=== PATIENT | male | born 1965 | race Caucasian/White ===

== ENCOUNTER 2022-02-06 14:19 | Emergency (ER) | payer SELFPAY ==
[~2022-02-06] VITALS: Ht 177.8 cm; Wt 121.1 kg
[~2022-02-06 14:19] MED LIST: AMLO10TA PO; METO-352 PO; MULT-974 PO; OMEG1CAP51 PO
--- NOTE | 2022-02-06 14:58 | ED General ---
General Chief Complaint: Rect Problems Stated Complaint: BLEEDING | DRUG REACTION Nursing Triage Note: PT AMB TO TRIAGE W C/O BRIGHT RED BLOODY STOOLS SX THIS AM. PT REPORTS HE STARTED XARELTO ON WEDNESDAY, CALLED [facility] AND WAS ADVISED TO GO TO ED FOR FURTHER EVALUATION AND TX. PT A&OX4, DENIES ANY NEW ONSET OF PAIN. Source of Information: Patient Exam Limitations: No Limitations History of Present Illness Date Seen by Provider: Feb 06, 2022 Time Seen by Provider: 14:35 Initial Comments 56-year-old male presents the emergency department today for bright red blood p er rectum. He states he had a small amount of bright red blood per rectum 1 time today. He was started on Xarelto 2 days ago for a DVT identified in his right upper arm secondary to recent trauma. He states he presented to the [facility], urgent care today and told them he had bleeding from his rectum while on Xarelto and was told to come to the emergency department. He denies any dizziness, lightheadedness. No chest pain or shortness of breath. No black or dark tarry stools. No rectal pain. Having normal bowel movements that are solid. Allergies and Home Medications Allergies Coded Allergies: Penicillins (Unverified Allergy, Severe, HIVES, 07/11/14) methylprednisolone (Unverified Allergy, Severe, "MAKES ME FEEL GOOFY", 07/11/14) Uncoded Allergies: 2 MEDS AFTER HAVING A HEART CATH (Allergy, Unknown, 07/11/14) Patient Home Medication List Home Medication List Reviewed: Yes Amlodipine Besylate (Amlodipine Besylate) 10 Mg Tablet, 10 MG PO DAILY Prescribed by: KALPANA SLADE on 07/11/141823 Docosahexanoic Acid/Epa (Fish Oil 1,000 Mg Softgel) 1 Cap Capsule, 1 CAP PO DAILY, (Reported) Entered as Reported by: BRAYAN BARRERA on 07/11/141714 Metoprolol Succinate (Toprol Xl) 50 Mg Tab, 50 MG PO BID, (Reported) Entered as Reported by: BRAYAN BARRERA on 07/11/141714 Multivitamin (Multi Vitamin Daily) 1 Each Tablet, 1 EACH PO DAILY, (Reported) Entered as Reported by: BRAYAN BARRERA on 07/11/141714 Review of Systems Review of Systems Constitutional: no symptoms reported EENTM: no symptoms reported Respiratory: no symptoms reported Cardiovascular: no symptoms reported Gastrointestinal: other (Bright red blood per rectum) Genitourinary: no symptoms reported Musculoskeletal: no symptoms reported Skin: no symptoms reported Psychiatric/Neurological: No Symptoms Reported Hematologic/Lymphatic: No Symptoms Reported Immunological/Allergic: no symptoms reported Past Nrrswew-Rkwrod-Pyrgdx Hx Patient Social History Tobacco Use?: No Use of E-Cig and/or Vaping dev: No Substance use?: No Alcohol Use?: No Immunizations Up To Date Tetanus Booster (TDap): Unknown Influenza Vaccine Up-to-Date: No; Not Current First/Initial COVID19 Vaccinat: NONE Second COVID19 Vaccination [place]: NONE Third COVID19 Vaccination Date: NONE 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 oz. [id number]; 38.00 BMI Method:Stated General Appearance: No Apparent Distress, WD/WN HEENT: Normal ENT Inspection, Pharynx Normal Neck: Normal Inspection, Non Tender, Supple Respiratory: Chest Non Tender, Lungs Clear, Normal Breath Sounds, No Accessory Muscle Use, No Respiratory Distress Cardiovascular: Regular Rate, Rhythm, No Edema, No Gallop, No JVD, No Murmur, Normal Peripheral Pulses Gastrointestinal: Normal Bowel Sounds, No Organomegaly, No Pulsatile Mass, Non Tender, Soft Extremity: Normal Capillary Refill, Normal Range of Motion, No Calf Tenderness, No Pedal Edema, Other (Ecchymosis to the right upper arm. There is mild swelling in this area as well. Good distal pulses. Neurovascular motor and sensory intact.) Neurologic/Psychiatric: Alert, Oriented x3, Normal Mood/Affect Skin: Normal Color, Warm/Dry Lymphatic: No Adenopathy Progress/Results/Core Measures Suspected Sepsis SIRS Temperature: Pulse: 70 Respiratory Rate: 20 Laboratory Tests 02/06/22 15:40: White Blood Count 5.9 Blood Pressure 147 /84 Mean: 105 Laboratory Tests 02/06/22 15:40: Platelet Count 231 Results/Orders Lab Results Laboratory Tests Test 02/06/22 15:40 Range/Units White Blood Count 5.9 4.3-11.0 10^3/uL Red Blood Count 4.89 4.30-5.52 10^6/uL Hemoglobin 13.5 13.3-17.7 g/dL Hematocrit 41 40-54 % Mean Corpuscular Volume 84 80-99 fL Mean Corpuscular Hemoglobin 28 25-34 pg Mean Corpuscular Hemoglobin Concent 33 32-36 g/dL Red Cell Distribution Width 14.6 H 10.0-14.5 % Platelet Count 231 130-400 10^3/uL Mean Platelet Volume 10.6 9.0-12.2 fL Immature Granulocyte % (Auto) 1 % Neutrophils (%) (Auto) 64 42-75 % Lymphocytes (%) (Auto) 20 12-44 % Monocytes (%) (Auto) 10 0-12 % Eosinophils (%) (Auto) 4 0-10 % Basophils (%) (Auto) 1 0-10 % Neutrophils # (Auto) 3.8 1.8-7.8 10^3/uL Lymphocytes # (Auto) 1.2 1.0-4.0 10^3/uL Monocytes # (Auto) 0.6 0.0-1.0 10^3/uL Eosinophils # (Auto) 0.3 0.0-0.3 10^3/uL Basophils # (Auto) 0.0 0.0-0.1 10^3/uL Immature Granulocyte # (Auto) 0.0 0.0-0.1 10^3/uL My Orders Orders - TONY SOLIS DO Cbc With Automated Diff (02/06/22 14:54) Vital Signs/I&O 02/06/22 02/06/22 14:27 16:14 Temp 36.3 36.4 Pulse 70 72 Resp 20 20 B/P (MAP) 147/84 (105) 138/82 Pulse Ox 95 98 O2 Delivery Room Air Room Air Capillary Refill : Less Than 3 Seconds Blood Pressure Mean: 105 Departure Communication (Admissions) Patient is hemodynamically stable. He is upset to be here after I advised him that his blood is likely from Xarelto. He states "I know that, that is why he went to the doctor, to get this medication change." I advised him that he should continue this medicine at present. If he continues to have small amounts of bright red blood per rectum that he may consider discussing changing medicines with his primary doctor however about small amount of bright red blood per rectum would not necessarily warrant this. He is being treated for DVT in his right upper extremity. No evidence for PE. CBC is normal with no evidence of anemia. He is discharged in stable condition. Impression Primary Impression: Bright red blood per rectum Disposition: HOME, SELF-CARE Condition: Stable Departure-Patient Inst. Referrals: [facility] [place] (PCP) Primary Care Physician Patient Instructions: Bloody Stools, Adult (DC) Add. Discharge Instructions: Blood in your stools is likely from starting Xarelto. You may have internal hemorrhoids or fissure causing some mild bleeding. There is no indication that this is significant bleeding. Recommend you continue to take Xarelto currently. Should you continue to have blood in your stools upcoming I recommend you talk to your primary doctor about switching blood thinners. Return to the emergency department for any dizziness lightheadedness shortness of breath or large volume of blood in your stools. Follow-up with your primary doctor in the next 2 to 3 days. All discharge instructions reviewed with patient and/or family. Voiced understanding. TONY SOLIS DO Feb 06, 2022 14:58
[2022-02-06 15:54] LABS: BASOPHILS % (AUTO) 1 % (0-10); EOSINOPHILS # (AUTO) 0.3 10^3/uL (0.0-0.3); EOSINOPHILS % (AUTO) 4 % (0-10); HEMATOCRIT 41 % (40-54); HEMOGLOBIN 13.5 g/dL (13.3-17.7); LYMPHOCYTES # (AUTO) 1.2 10^3/uL (1.0-4.0); LYMPHOCYTES % (AUTO) 20 % (12-44); MEAN CORPUSCULAR HEMOGLOBIN 28 pg (25-34); MEAN CORPUSCULAR HGB CONC 33 g/dL (32-36); MEAN CORPUSCULAR VOLUME 84 fL (80-99); MEAN PLATELET VOLUME 10.6 fL (9.0-12.2); MONOCYTES # (AUTO) 0.6 10^3/uL (0.0-1.0); MONOCYTES % (AUTO) 10 % (0-12); NEUTROPHILS # (AUTO) 3.8 10^3/uL (1.8-7.8); NEUTROPHILS % (AUTO) 64 % (42-75); PLATELET COUNT 231 10^3/uL (130-400); WHITE BLOOD COUNT 5.9 10^3/uL (4.3-11.0)
[2022-02-06 16:14] VITALS: BP 138/82
== END 2022-02-06 16:14 | disposition home or self-care (01) ==
LOC: EDUNIT# 14:19 → ER 14:21
DX: K62.5 Hemorrhage of anus and rectum (principal); Z86.718 Personal history of other venous thrombosis and embolism; Z28.310 Unvaccinated for COVID-19; Z79.01 Long term (current) use of anticoagulants
CPT/HCPCS: 36415; 85025